=== PATIENT | male | born 1990 | race Caucasian/White ===

== ENCOUNTER 2016-06-06 17:37 | Emergency (ER) | payer MEDICAID, OTHER ==
[2016-06-06 18:34] VITALS: BP 124/79
[2016-06-06] MEDS ORDERED: Ibuprofen TAB* 600 MG PO ONE (19:03)
--- NOTE | 2016-06-06 19:18 | ED ---
Lower Extremity - HPI Summary HPI Summary: Patient was running and jumped down on a disc sled and rolled his right ankle underneath. Unable to bear weight since the accident. No knee or foot pain, sensory deficits. No allev factors attempted. EMS called. - History of Current Complaint Chief Complaint: EDExtremityLower Stated Complaint: RIGHT ANKLE INJURY Time Seen by Provider: 06/06/16 19:00 Hx Obtained From: Patient, EMS Mechanism Of Injury: Blunt Trauma Onset of Pain: Immediate Severity Initially: Moderate Severity Currently: Moderate Pain Intensity: 8 Location: Is Discrete @ - R ankle Character Of Pain: Sharp, Throbbing Associated Signs And Symptoms: Positive: Swelling Aggravating Factor(s): Standing, Movement, Weight Bearing - Allergies/Home Medications Allergies/Adverse Reactions: Allergies Allergy/AdvReac Type Severity Reaction Status Date / Time No Known Allergies Allergy Verified 06/06/16 19:05 PMH/Surg Hx/FS Hx/Imm Hx Previously Healthy: Yes Infectious Disease History: No Infectious Disease History: Denies: Traveled Outside the [place] in Last 30 Days - Social History Alcohol Use: Daily Alcohol Amount: pt in [facility] Substance Use Type: Reports: Marijuana Substance Use Comment - Amount & Last Used: Pt in [facility] Smoking Status (MU): Never Smoked Tobacco Review of Systems Positive: Arthralgia Skin: Negative Neurological: Negative Negative: Weakness, Paresthesia, Numbness All Other Systems Reviewed And Are Negative: Yes Physical Exam Triage Information Reviewed: Yes Vital Signs On Initial Exam: Initial Vitals Temp Pulse Resp BP Pulse Ox 99.2 F 97 20 124/79 96 06/06/16 18:22 06/06/16 18:22 06/06/16 18:22 06/06/16 18:22 06/06/16 18:22 Vital Signs Reviewed: Yes Appearance: Positive: Well-Appearing, Well-Nourished, Pain Distress Skin: Positive: Warm, Skin Color Reflects Adequate Perfusion, Dry Respiratory/Lung Sounds: Positive: Clear to Auscultation, Breath Sounds Present Cardiovascular: Positive: Normal, RRR, Pulses are Symmetrical in both Upper and Lower Extremities Musculoskeletal: Positive: Strength/ROM Intact, Limited @ - R lateral malleolus. No knee pain. Full active ROM of knee and foot. Cap refill less than 2 seconds. Neurological: Positive: Normal, Sensory/Motor Intact, Alert, Oriented to Person Place, Time, CN Intact II-III, Reflexes Intact, Abnormal Gait Procedures - Splinting Hand-Made Type: fiberglass Splint: U splint and short posterior leg Pre-Proc Neuro Vasc Exam: normal Post-Proc Neuro Vasc Exam: normal Diagnostics - Vital Signs Vital Signs Temp Pulse Resp BP Pulse Ox 06/06/16 18:22 99.2 F 97 20 124/79 96 - Laboratory Lab Statement: Any lab studies that have been ordered have been reviewed, and results considered in the medical decision making process. Lower Extremity Course/Dx - Diagnoses Differential Diagnosis/HQI/PQRI: Positive: Fracture (Closed), Sprain, Strain, Other - Primary concern for localized fibula fracture. POssible sprain. Xray and analgesia for now. Given morphine by EMS just prior to arrival and slightly drowsy. Provider Diagnoses: Closed right fibular fracture Discharge - Discharge Plan Condition: Stable Disposition: HOME Prescriptions: HYDROcodone/ACETAMIN 5-325 MG* [[place] 5-325 TAB*] 2 tab PO Q4H PRN #10 tab MDD 8 PRN Reason: Pain Patient Education Materials: Ankle Fracture (ED) Referrals: Lucie Gordon MD [Medical Doctor] - 3 Days Hamlet York DO [Primary Care Provider] - If Needed
--- NOTE | 2016-06-06 19:42 | RAD ---
HISTORY: Right ankle trauma COMPARISONS: None VIEWS: 2, Frontal and lateral views of the right ankle FINDINGS: BONE DENSITY: Normal. BONES: There is an oblique nondisplaced fracture of the distal fibula. JOINTS: There is no arthropathy. ALIGNMENT: There is no dislocation. SOFT TISSUES: There is associated soft tissue swelling OTHER FINDINGS: None. IMPRESSION: NONDISPLACED FRACTURE OF THE DISTAL FIBULA
== END 2016-06-06 20:30 | disposition home or self-care (01) ==
LOC: ED 17:37
DX: S82.401A Unspecified fracture of shaft of right fibula, initial encounter for closed fracture (principal); X50.9XXA Other and unspecified overexertion or strenuous movements or postures, initial encounter; Y93.9 Activity, unspecified; Y92.9 Unspecified place or not applicable; Y99.9 Unspecified external cause status
CPT/HCPCS: 99282; A9270-GY

== ENCOUNTER 2016-06-07 18:12 | Emergency (ER) | payer MEDICAID, OTHER ==
[2016-06-07] MEDS ORDERED: Morphine INJ* 10 MG/ML 1 ML CARPUJECT IV ONE (18:29)
[2016-06-07] MEDS ORDERED: Ondansetron INJ* 2 MG/ML VIAL IV ONE (18:30)
--- NOTE | 2016-06-07 18:36 | ED ---
Lower Extremity - HPI Summary HPI Summary: 25 M presents with right ankle pain. He was in a sledding accident yesterday. Was seen yesterday and diagnosed with right fibular fracture. Was placed on short leg posterior walking splint. He denies any numbness or tingling. States the pain has been constant and has not increased. He states that the cast feels loose enough. He has a follow up Friday with dr moran. He has been using ibupfreon and vicodin for the pain without relief. He denies any history of IV drug use and does not use narcotics on a daily basis. - History of Current Complaint Chief Complaint: EDExtremityLower Stated Complaint: RT ANKLE PAIN Time Seen by Provider: 06/07/16 18:15 Pain Intensity: 8 - Allergies/Home Medications Allergies/Adverse Reactions: Allergies Allergy/AdvReac Type Severity Reaction Status Date / Time No Known Allergies Allergy Verified 06/06/16 19:05 PMH/Surg Hx/FS Hx/Imm Hx Endocrine/Hematology History: Denies: Hx Anticoagulant Therapy Cardiovascular History: Denies: Hx Hypertension Infectious Disease History: No Infectious Disease History: Denies: Traveled Outside the [place] in Last 30 Days - Family History Known Family History: Negative: Cardiac Disease - Social History Alcohol Use: None Alcohol Amount: pt in [facility] Substance Use Type: Reports: None Substance Use Comment - Amount & Last Used: Pt in [facility] Smoking Status (MU): Former Smoker Review of Systems Negative: Fever Negative: Chest Pain Negative: Shortness Of Breath Positive: Myalgia - right ankle pain All Other Systems Reviewed And Are Negative: Yes Physical Exam Triage Information Reviewed: Yes Vital Signs On Initial Exam: Initial Vitals Temp Pulse Resp BP Pulse Ox 98.4 F 84 16 125/76 95 06/07/16 18:15 06/07/16 18:15 06/07/16 18:15 06/07/16 18:15 06/07/16 18:15 Vital Signs Reviewed: Yes Appearance: Positive: Well-Appearing Skin: Positive: Warm, Dry Head/Face: Positive: Normal Head/Face Inspection Eyes: Positive: Normal, Conjunctiva Clear ENT: Positive: Normal ENT inspection, Pharynx normal, TMs normal Respiratory/Lung Sounds: Positive: Clear to Auscultation, Breath Sounds Present Cardiovascular: Positive: Normal, RRR Musculoskeletal: Positive: Other - cast present on right ankle, able to move toes, capillary refill <2 secs, appears to be good perfusion to toes, sensation grossly intact Diagnostics - Vital Signs Vital Signs Temp Pulse Resp BP Pulse Ox 06/07/16 18:15 98.4 F 84 16 125/76 95 - Laboratory Lab Statement: Any lab studies that have been ordered have been reviewed, and results considered in the medical decision making process. - CT ankle CT Interpretation: Positive (See Comments) - IMPRESSION: AGAIN NOTED IS A FRACTURE OF THE DISTAL FIBULA. THERE IS MILD WIDENING OF THE TIBIOTALAR INTERVAL SUGGESTIVE OF LIGAMENTOUS INJURY. CT Interpretation Completed By: Radiologist Re-Evaluation - Re-Evaluation First Eval Re-Evaluation Time: 19:18 Change: Improved Comment: patient pain has decreased with pain medication Lower Extremity Course/Dx - Course Course Of Treatment: 25 F presents with right ankle pain since yesterday. was seen here and placed in short posteroir walking splint and given vicodin for pain. states pain has been same since leaving here. denies any numbness or tingling. appears to be good perfusion of toes and sensation grossly intact so do not suspect compartment syndrome. splint does not appear to be placed too snug on foot. will get CT and gave morphine to break pain cycle. has follow up friday with ortho. CT shows fracture and ligament injury, explained results to patient and patient pain currently reduced, will have use pain medication prescibed yesterday, encouraged to use ice and elevate, patient agrees with plan - Diagnoses Differential Diagnosis/HQI/PQRI: Positive: Compartment Syndrome, Fracture (Open) , Sprain, Strain Provider Diagnoses: Fibula fracture Discharge - Discharge Plan Condition: Good Disposition: HOME Patient Education Materials: Ankle Fracture (ED) Referrals: Hamlet York DO [Doctor of Osteopathy] - Lucie Moran MD [Medical Doctor] - Additional Instructions: Keep appointment with ortho on Friday Use crutches and stay nonweight bearing Keep splint on area and keep dry Use ibuprofen for pain every 6 hours and use narcotic for breakthrough pain Ice, elevate Return to ED if develop numbness or tingling or any new or worsening symptoms
--- NOTE | 2016-06-07 19:37 | RAD ---
HISTORY: Fibular fracture, increased pain COMPARISONS: Plain film dated June 06, 2016 TECHNIQUE: Multiple contiguous axial CT images are obtained of the right ankle, with coronal and sagittal multiplanar reconstructions, without intravenous contrast administration. FINDINGS: BONE DENSITY: Normal. BONES: Again noted is a minimally displaced fracture of the distal fibula. There is mild widening of the tibiotalar interval. JOINTS: There is no arthropathy. MUSCULATURE: Unremarkable ALIGNMENT: There is no dislocation. SOFT TISSUES: There is subcutaneous edema at the level of the ankle. OTHER FINDINGS: None. IMPRESSION: AGAIN NOTED IS A FRACTURE OF THE DISTAL FIBULA. THERE IS MILD WIDENING OF THE TIBIOTALAR INTERVAL SUGGESTIVE OF LIGAMENTOUS INJURY.
[2016-06-07 20:04] VITALS: BP 128/79
== END 2016-06-07 20:03 | disposition home or self-care (01) ==
LOC: ED 18:12
DX: S82.831A Other fracture of upper and lower end of right fibula, initial encounter for closed fracture (principal); X58.XXXA Exposure to other specified factors, initial encounter; Y93.23 Activity, snow (alpine) (downhill) skiing, snowboarding, sledding, tobogganing and snow tubing; Y92.9 Unspecified place or not applicable; Y99.9 Unspecified external cause status; Z87.891 Personal history of nicotine dependence
CPT/HCPCS: 96374; 96375; 99282; J2270; J2405

== ENCOUNTER → 2016-06-19 05:47 | Day surgery (SDC) | payer OTHER ==
[~2016-06-19 05:47] MED LIST: Atracurium* 10 MG/ML 10 ML VIAL ONE; Buffered Lidocaine 1% SYR 3ML* 3 ML/SYR SYRINGE INTRADERM ONE; Bupivacaine 0.5% W/EPI SDV* 30 ML VIAL ONE; Desflurane* 240 ML INH ONE; Dexamethasone TAB* 4 MG ONE; Dexamethasone TAB* 4 MG PO ONE; DiMENhydriNATE IV* 50 MG/ML VIAL IV PUSH PRN; Famotidine IV* 10 MG/ML 2 ML (20 mg) IV ONE; Famotidine IV* 10 MG/ML 2 ML (20 mg) ONE; HYDROmorphone INJ* 1 MG/ML CARPUJECT SYRINGE ONE; Ketorolac INJ* 30 MG/ML 1 ML VIAL ONE; Levalbuterol 0.63MG/3ML NEB INH ONE; Levalbuterol 1.25MG/0.5ML NEB ONE; Levalbuterol HFA INHALER* 1 PUFF MDI ONE; Lidocaine 2% PF * 5 ML VIAL ONE; Midazolam* 1 MG/ML 5 ML VIAL (5 MG) ONE; Ondansetron INJ* 2 MG/ML VIAL IV PRN; Ondansetron INJ* 2 MG/ML VIAL ONE; Propofol* 10 MG/ML 20 ML BTL IV PUSH ONE; ceFAZolin 2 GM PREMIX (*) 2 GM/50 ML BAG IVPB ONE; fentaNYL* 50 MCG/ML 2 ML VIAL (100 MCG VIAL) ONE; fentaNYL* 50 MCG/ML 5 ML VIAL (250 MCG VIAL) ONE
--- NOTE | 2016-06-19 09:57 | RAD ---
INDICATION: ORIF RIGHT ankle fracture. COMPARISON: June 10, 2016 radiographs. TECHNIQUE: 28.9 seconds fluoroscopy. FINDINGS: Spot images document placement of a cortical plate and multiple fixation screws across the Mariscal type B lateral malleolus fracture. Resulting gross anatomic alignment. IMPRESSION: Procedural fluoroscopy. CPT II Codes: 6045F
[2016-06-19] MEDS: HYDROmorphone INJ* 1 MG/ML CARPUJECT SYRINGE IV PRN ×5 (10:24→11:10)
[2016-06-19] MEDS: fentaNYL* 50 MCG/ML 2 ML VIAL (100 MCG VIAL) IV PRN ×4 (12:16→12:35)
[2016-06-19 14:18] VITALS: BP 129/58
[2016-06-19 14:40] LABS: Call Hep C TO BE CALLED
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
== END | disposition home or self-care (01) ==
LOC: OR 05:47
PROVIDERS: ATTEND Orthopaedic Surgery
DX: S82.61XA Displaced fracture of lateral malleolus of right fibula, initial encounter for closed fracture (principal); R09.02 Hypoxemia; J45.909 Unspecified asthma, uncomplicated; Z87.891 Personal history of nicotine dependence; F31.9 Bipolar disorder, unspecified; V00.328A Other snow-ski accident, initial encounter; Y93.23 Activity, snow (alpine) (downhill) skiing, snowboarding, sledding, tobogganing and snow tubing; Y83.8 Other surgical procedures as the cause of abnormal reaction of the patient, or of later complication, without mention of misadventure at the time of the procedure; Y92.239 Unspecified place in hospital as the place of occurrence of the external cause
CPT/HCPCS: 36415; 76001; 86703; 86706; 86803; 87340; A9270-GY; C1713; C1776; J0690; J1170; J1885; J2250; J2405; J2704; J3010; J8540

== ENCOUNTER 2016-06-19 19:28 | Emergency (ER) | payer OTHER ==
[2016-06-19 19:45] VITALS: BP 149/73
[2016-06-19] MEDS ORDERED: oxyCODONE/Acetamin 5/325 MG* TAB PO ONE ×2 (20:07→20:09)
--- NOTE | 2016-08-07 14:11 | ED ---
Lower Extremity - HPI Summary HPI Summary: Pt presents w/ Rt ankle pain s/p surgery earlier today. He was rx'd percocet by Dr. Pierre, his surgeon. However since he is a resident at [facility] and goes through [facility], his medication will not be delivered until tomorrow. He is requesting pain medication to carry him through the night. Dr. Pierre called to verify this is all true. Pt's ankle is wrapped in post op dressing and he's been taking ibuprofen w/ minimal relief. Denies fever, chills, N/V/D, numbness or tingling. Dressing seems to be comfortable w/o areas of discomfort other than ankle itself being sore from procedure. - History of Current Complaint Chief Complaint: EDExtremityLower Stated Complaint: POST OP ANKLE PAIN Time Seen by Provider: 06/19/16 19:51 Hx Obtained From: Patient Pain Intensity: 8 Pain Scale Used: 0-10 Numeric - Allergies/Home Medications Allergies/Adverse Reactions: Allergies Allergy/AdvReac Type Severity Reaction Status Date / Time No Known Allergies Allergy Verified 06/19/16 06:29 PMH/Surg Hx/FS Hx/Imm Hx Previously Healthy: Yes Endocrine/Hematology History: Denies: Hx Anticoagulant Therapy, Autoimmune Disease Cardiovascular History: Denies: Hx Hypertension Respiratory History: Reports: Hx Asthma - A CHILD Musculoskeletal History: Reports: Other Musculoskeletal History - PLATE AND SCREWS LEFT ANKLE, BONE GRAFT LEFT HIP Sensory History: Denies: Hx Contacts or Glasses, Hx Hearing Aid Opthamlomology History: Denies: Hx Contacts or Glasses Psychiatric History: Reports: Hx Anxiety - ON MEDS, Hx Depression - ON MEDS, Hx Substance Abuse - in [facility] - Surgical History Surgery Procedure, Year, and Place: LEFT ANKLE WITH BONE GRAFT, 2003, [facility]. APPENDECTOMY. T/A A CHILD Hx Anesthesia Reactions: Yes - ASTHMA ATTACKS WITH ANESTHESIA Infectious Disease History: No Infectious Disease History: Reports: Hx Hepatitis - HEP C Denies: Traveled Outside the [place] in Last 30 Days - Family History Known Family History: Negative: Cardiac Disease - Social History Occupation: Unemployed Lives: Residential - [facility] Alcohol Use: None Alcohol Amount: SOBER SINCE 2015 Hx Substance Use: Yes Substance Use Comment - Amount & Last Used: Pt in [facility] Hx Tobacco Use: Yes Smoking Status (MU): Former Smoker Amount Used/How Often: PACK A DAY Review of Systems Constitutional: Negative Negative: Chest Pain Negative: Shortness Of Breath Negative: Vomiting, Nausea Musculoskeletal: Other - see HPI Negative: Weakness, Paresthesia, Numbness Psychological: Normal All Other Systems Reviewed And Are Negative: Yes Physical Exam Triage Information Reviewed: Yes Vital Signs On Initial Exam: Initial Vitals Temp Pulse Resp BP Pulse Ox 97.7 F 104 18 149/73 92 06/19/16 19:39 06/19/16 19:39 06/19/16 19:39 06/19/16 19:39 06/19/16 19:39 Vital Signs Reviewed: Yes Appearance: Positive: Well-Appearing, Well-Nourished, Pain Distress - mild Skin: Positive: Warm, Dry - Rt LE - can only visualize toes and upper leg - dressing in place is dry and w/o signs of bleeding Head/Face: Positive: Normal Head/Face Inspection Eyes: Positive: Normal, EOMI ENT: Positive: Hearing grossly normal, Pharynx normal - mucosa moist Respiratory/Lung Sounds: Positive: Breath Sounds Present Cardiovascular: Positive: Normal, RRR, Pulses are Symmetrical in both Upper and Lower Extremities - cap refil < 2 secs, toes are warm and pink Musculoskeletal: Positive: Limited @ - Rt ankle in post op dressing Neurological: Positive: Normal, Sensory/Motor Intact, Alert, Oriented to Person Place, Time, CN Intact II-III Psychiatric: Positive: Anxious - concerned about pain but is calm and cooperative - does not appear intoxicated Diagnostics - Vital Signs Vital Signs Temp Pulse Resp BP Pulse Ox 06/19/16 20:27 98.7 F 95 18 149/73 06/19/16 19:39 97.7 F 104 18 149/73 92 - Laboratory Lab Statement: Any lab studies that have been ordered have been reviewed, and results considered in the medical decision making process. Lower Extremity Course/Dx - Course Course Of Treatment: Pt presents w/ Rt ankle post -op pain as he only has ibuprofen for pain at this time. Dr. Pierre called to verify pt was supposed to have percocet post-op but didn't realize d/t his living situation ([facility]) he will not receive medications until tomorrow. A short course of percocet was provided to pt. Also provided re-education about the importance of elevation and icing. Pt does not appear to have infection or compartment syndrome - perfusion is good. Also had conversation about level of responsibility he needs to take by having percocet - both in regards to being a former addict and w/ living on a premise w/ former/possibly current addicts - he is responsible for taking medications as directed only, not losing them and not sharing them. If he is negligent w/ these recommendations, additional medications will not be provided. Pt voices understanding. Follow-up with Dr. Pierre as directed. Pt agrees w/ plan. - Diagnoses Provider Diagnoses: Post-op pain Discharge - Discharge Plan Condition: Stable Disposition: HOME Patient Education Materials: Oxycodone/Acetaminophen (By mouth), Leg Pain (ED) Referrals: Chilango Pierre MD [Medical Doctor] - Additional Instructions: You had surgery on your leg recently - this may cause pain. It is understood that you do not have any pain medication aside from ibuprofen until tomorrow as your pharmacy takes 24 hours to deliver it. You are being sent home tonight with a short supply of percocet 5/325mg 1-2 tabs PO q 4-6 hours as needed for pain - MAX DAILY DOSE #6. This is what your surgeon prescribed. This quantity will carry you through until your prescription arrives tomorrow. Take as directed and do not share with others. *If you develop leg swelling, worsening pain and/or fever, chills, vomiting, return to ED
== END 2016-06-19 20:27 | disposition home or self-care (01) ==
LOC: ED 19:28
DX: M79.606 Pain in leg, unspecified (principal)
CPT/HCPCS: 99282; A9270-GY